=== PATIENT | male | born 1965 | race Caucasian/White ===

== ENCOUNTER 2017-02-03 21:00 | Inpatient (IN) | payer MEDICAID ==
[~2017-02-03] VITALS: Ht 167.6 cm; Wt 70.3 kg
[2017-02-03] MEDS ORDERED: ONDANSETRON HCL 4MG/2ML VIAL IV STA (23:19)
[2017-02-03] MEDS ORDERED: MORPHINE SULFATE 4 MG/ML CPJ (NOT FOR IM USE) IV STA (23:19)
[2017-02-04 00:22] LABS: BASOPHILS % 1.1 % (0.0-2.0); EOSINOPHILS % 10.1 % (0.0-5.0); HEMOGLOBIN. 8.8 g/dL (14.0-18.0); LYMPHOCYTES % 33.3 % (20.0-50.0); MEAN CORPUSCULAR HEMOGLOBIN 28.4 pg (28.0-32.0); MEAN CORPUSCULAR VOLUME 84.2 fL (80.0-94.0); MEAN PLATELET VOLUME 7.8 fl (7.4-10.4); MONOCYTES % 9.7 % (2.0-8.0); NEUTROPHILS % 45.8 % (40.0-76.0); PLATELET 380 x1000/uL (130-400); RED BLOOD CELL COUNT 3.09 mill/uL (4.7-6.1); RED CELL DISTRIBUTION WIDTH 14.2 % (11.6-14.6)
[2017-02-04 00:27] LABS: BG BASE EXCESS 3.6 mmol/L (-2.0-2.0); BG CARBOXYHEMOGLOBIN 2.2 % (0.5-1.5); BG DEOXYHEMOGLOBIN 5.2 % (0.0-5.0); BG FRACTION INSPIRED OXYGEN 21; BG HCO3 ACT 27.6 mmol/L (22.0-26.0); BG METHEMOGLOBIN 0.1 % (0.0-1.5); BG OXYGEN SATURATION 94.7 % (92.0-98.5); BG OXYHEMOGLOBIN 92.5 % (94.0-97.0); BG PCO2 39.3 mmHg (35.0-45.0); BG PH 7.464 (7.350-7.450); BG SAMPLE SITE RIGHT BRACHIAL; BG TOTAL HEMOGLOBIN 10.4 g/dL (12.0-18.0); BG VENT MODE ROOM AIR
[2017-02-04 00:38] LABS: CARBON DIOXIDE 30 mEq/L (21-32); CHLORIDE 93 mEq/L (98-107); TROPONIN I < 0.02 ng/mL (0.00-0.04)
[2017-02-04] MEDS ORDERED: SODIUM CHLORIDE 0.9% 1,000 ML IV SCH (01:38)
[2017-02-04] MEDS ORDERED: INSULIN REGULAR (HUMULIN R) 300UNITS/3ML SUBCUT ONE (01:45)
[2017-02-04] MEDS ORDERED: VANCOMYCIN 1 G PREMIX 200 ML IV ONE (01:45)
[2017-02-04] MEDS ORDERED: MEROPENEM 1,000 MG in SODIUM CHLORIDE 0.9% 100 ML IV ONE (01:45)
[2017-02-04 13:00] VITALS: BP 120/68
[2017-02-04 13:07] VITALS: BP 120/68
[2017-02-04] MEDS ORDERED: QUET300T2 PO (13:18)
[2017-02-04] MEDS ORDERED: GABA-290 PO (13:18)
[2017-02-04] MEDS ORDERED: LANTUSUD SUBCUT (13:18)
[2017-02-04] MEDS ORDERED: TRAM50TA3 PO (13:18)
[2017-02-04] MEDS ORDERED: INSLIS SUBCUT (13:18)
[2017-02-04] MEDS ORDERED: BACL-141 PO (13:18)
[2017-02-04] MEDS ORDERED: ASPI-1159 PO (13:18)
[2017-02-04] MEDS ORDERED: CLONIDINE 0.1MG TABLET PO PRN (14:00)
[2017-02-04] MEDS ORDERED: ACETAMINOPHEN 325MG TABLET PO PRN (14:00)
[2017-02-04] MEDS ORDERED: ONDANSETRON HCL 4MG/2ML VIAL IV PRN (14:00)
[2017-02-04] MEDS ORDERED: DEXTROSE 50% WATER 50ML SYRINGE IV PRN (14:00)
[2017-02-04] MEDS ORDERED: IPRATROPIUM/ALBUTEROL 0.5-3(2.5)MG/3ML NEB INH PRN (14:00)
[2017-02-04] MEDS: ASPIRIN 81MG EC TABLET PO SCH (14:18)
[2017-02-04] MEDS: AMLODIPINE 10MG TABLET PO SCH (14:19)
[2017-02-04] MEDS: HYDROCODONE/ACETAMINOPHEN 5/325MG TABLET PO PRN ×2 (14:19→20:56)
[2017-02-04] MEDS: ENOXAPARIN 40MG/0.4ML SYR SUBCUT SCH (14:23)
[2017-02-04 16:00] VITALS: BP 115/70
[2017-02-04] MEDS ORDERED: LEVOFLOXACIN 500MG PREMIX 100 ML IV SCH (16:00)
[2017-02-04] MEDS: BLOOD SUGAR DIAGNOSTIC STRIP TEST SCH ×2 (17:15→20:56)
[2017-02-04] MEDS: INSULIN LISPRO 100 UNITS/ML SUBCUT SCH ×2 (18:30→21:01)
[2017-02-04 20:00] VITALS: BP 118/78
[2017-02-04 20:01] LABS: CREATINE KINASE 18 IU/L (39-308); CREATINE KINASE MB FRACTION < 0.5 ng/mL (0.5-3.6); TROPONIN I < 0.02 ng/mL (0.00-0.04)
[2017-02-05] VITALS: BP 99/79
[2017-02-05 04:04] LABS: CREATINE KINASE 12 IU/L (39-308); CREATINE KINASE MB FRACTION < 0.5 ng/mL (0.5-3.6); TROPONIN I < 0.02 ng/mL (0.00-0.04)
[2017-02-05] MEDS: BLOOD SUGAR DIAGNOSTIC STRIP TEST SCH ×2 (06:33→12:38)
[2017-02-05] MEDS: INSULIN LISPRO 100 UNITS/ML SUBCUT SCH ×2 (06:42→13:01)
[2017-02-05] MEDS: HYDROCODONE/ACETAMINOPHEN 5/325MG TABLET PO PRN (06:46)
[2017-02-05 08:00] VITALS: BP 105/58
[2017-02-05] MEDS: AMLODIPINE 10MG TABLET PO SCH (09:00)
[2017-02-05 09:08] LABS: BASOPHILS % 1.2 % (0.0-2.0); EOSINOPHILS % 10.3 % (0.0-5.0); HEMOGLOBIN. 9.2 g/dL (14.0-18.0); LYMPHOCYTES % 43.2 % (20.0-50.0); MEAN CORPUSCULAR HEMOGLOBIN 28.3 pg (28.0-32.0); MEAN CORPUSCULAR VOLUME 82.9 fL (80.0-94.0); MEAN PLATELET VOLUME 7.7 fl (7.4-10.4); MONOCYTES % 8.8 % (2.0-8.0); NEUTROPHILS % 36.5 % (40.0-76.0); PLATELET 412 x1000/uL (130-400); RED BLOOD CELL COUNT 3.25 mill/uL (4.7-6.1); RED CELL DISTRIBUTION WIDTH 14.5 % (11.6-14.6)
[2017-02-05] MEDS: ASPIRIN 81MG EC TABLET PO SCH (09:38)
[2017-02-05] MEDS: ENOXAPARIN 40MG/0.4ML SYR SUBCUT SCH (09:39)
[2017-02-05 09:42] LABS: CARBON DIOXIDE 29 mEq/L (21-32); CHLORIDE 97 mEq/L (98-107); HDL CHOLESTEROL 17 mg/dL (40-59); LDL CHOLESTEROL 78 mg/dL (5-100)
[2017-02-05 14:34] VITALS: BP 20/107
== END 2017-02-05 15:00 | disposition home or self-care (01) | DRG 203 ==
LOC: ER 21:33 → 8WST 02-04 01:42 → EDBEDREQ 02-04 01:51 → EDBEDREQTM 02-04 01:51 → ENRESERV 02-04 11:25
PROVIDERS: ADMIT Hospitalist; ATTEND Hospitalist
DX: M94.0 Chondrocostal junction syndrome [Tietze] (principal); E43 Unspecified severe protein-calorie malnutrition; J18.9 Pneumonia, unspecified organism; K75.9 Inflammatory liver disease, unspecified; E87.8 Other disorders of electrolyte and fluid balance, not elsewhere classified; I10 Essential (primary) hypertension; E11.9 Type 2 diabetes mellitus without complications; F17.200 Nicotine dependence, unspecified, uncomplicated; F12.90 Cannabis use, unspecified, uncomplicated; E78.00 Pure hypercholesterolemia, unspecified; Z87.01 Personal history of pneumonia (recurrent); E87.1 Hypo-osmolality and hyponatremia; E83.51 Hypocalcemia
CPT/HCPCS: 36415; 36600; 71010; 80053; 80061; 82010; 82375; 82550; 82553; 82805; 82962; 83605; 83880; 84484; 85025; 87040; 93005; 93970; 96365; 96366; 96368; 96372; 96375; 99291; J1650; J1815; J1956; J2185; J2270; J2405; J3370; J7030; J7040; J7050

== ENCOUNTER 2019-04-04 19:12 | Emergency (ER) | payer MEDICAID ==
[~2019-04-04] VITALS: Ht 167.6 cm; Wt 82.0 kg
[~2019-04-04 19:12] MED LIST: ASPI-1393 PO; BACL-141 PO; GABA-290 PO; INSLIS SUBCUT; LANTUSUD SUBCUT; QUET300T2 PO; TRAM50TA3 PO
[2019-04-04] MEDS ORDERED: SODIUM CHLORIDE 0.9% 1,000 ML IV ONE (20:04)
[2019-04-04 20:27] LABS: CHLORIDE 100 mEq/L (98-107)
[2019-04-04 20:32] LABS: ETHANOL BLOOD < 10 mg/dL
[2019-04-04 20:33] LABS: BASOPHILS % 1.2 % (0.0-2.0); EOSINOPHILS % 8.3 % (0.0-5.0); HEMATOCRIT. 40.5 % (42.0-52.0); HEMOGLOBIN. 14.1 g/dL (14.0-18.0); LYMPHOCYTES % 28.9 % (20.0-50.0); MEAN CORPUSCULAR HEMOGLOBIN 30.7 pg (28.0-32.0); MEAN CORPUSCULAR VOLUME 88.5 fL (80.0-94.0); MEAN PLATELET VOLUME 9.1 fl (7.4-10.4); MONOCYTES % 10.6 % (2.0-8.0); PLATELET 215 x1000/uL (130-400); RED BLOOD CELL COUNT 4.58 mill/uL (4.7-6.1); RED CELL DISTRIBUTION WIDTH 13.5 % (11.6-14.6)
[2019-04-04 21:24] LABS: CLARITY URINE CLEAR (CLEAR); COLOR URINE YELLOW (YELLOW); KETONES URINE NEGATIVE (NEGATIVE); LEUKOCYTE ESTERASE URINE NEGATIVE (NEGATIVE); NITRITE URINE NEGATIVE (NEGATIVE); OCCULT BLOOD URINE NEGATIVE (NEGATIVE); PH URINE 6.5 (4.5-8.0); PROTEIN URINE NEGATIVE (NEGATIVE); SPECIFIC GRAVITY URINE 1.025 (1.005-1.030); UROBILINOGEN URINE 0.2 E.U./dL (0.2-1.0)
[2019-04-04] MEDS ORDERED: METFORMIN HCL 500MG TABLET PO ONE (21:30)
[2019-04-04] MEDS ORDERED: INSULIN GLARGINE UD 100 UNITS/ML SYR SUBCUT NR (21:30)
[2019-04-04] MEDS ORDERED: BENAZEPRIL 5MG TABLET PO ONE (21:30)
[2019-04-04 21:34] LABS: *AMPHETAMINES SCREEN URINE NEGATIVE (NEGATIVE); *BARBITURATES SCREEN URINE NEGATIVE (NEGATIVE); *BENZODIAZEPINES SCREEN URINE NEGATIVE (NEGATIVE); *COCAINE SCREEN URINE NEGATIVE (NEGATIVE); CANNABINOID URINE SCREEN NEGATIVE (NEGATIVE); OPIATES URINE SCREEN NEGATIVE (NEGATIVE); PHENCYCLIDINE URINE SCREEN NEGATIVE (NEGATIVE)
[2019-04-04 21:35] LABS: METHADONE URINE SCREEN NEGATIVE (NEGATIVE)
[2019-04-04] MEDS: GABAPENTIN 300MG CAPSULE PO SCH (23:57)
[2019-04-05] MEDS: GABAPENTIN 300MG CAPSULE PO SCH (06:50)
[2019-04-05] MEDS ORDERED: INSULIN REGULAR (HUMULIN R) 300UNITS/3ML SUBCUT ONE (12:30)
[2019-04-05 13:00] VITALS: BP 146/76
== END 2019-04-05 13:45 | disposition home or self-care (01) ==
LOC: ER 19:12
DX: F32.9 Major depressive disorder, single episode, unspecified (principal); F41.9 Anxiety disorder, unspecified; R45.851 Suicidal ideations; E11.65 Type 2 diabetes mellitus with hyperglycemia; I10 Essential (primary) hypertension; E78.00 Pure hypercholesterolemia, unspecified; F43.10 Post-traumatic stress disorder, unspecified; F17.210 Nicotine dependence, cigarettes, uncomplicated; Z71.6 Tobacco abuse counseling; Z79.82 Long term (current) use of aspirin; Z75.1 Person awaiting admission to adequate facility elsewhere; Z79.4 Long term (current) use of insulin
CPT/HCPCS: 36415; 80053; 80305; 80320; 81003; 82962; 85025; 96372; 99284; 99406; J1815; J7030; G0480

== ENCOUNTER 2019-06-24 18:33 | Emergency (ER) | payer MEDICAID ==
[~2019-06-24] VITALS: Ht 167.6 cm; Wt 80.0 kg
[~2019-06-24 18:33] MED LIST changes: -ASPI-1393 PO; +ASPI-1497 PO
[2019-06-24] MEDS ORDERED: LORAZEPAM 1MG TABLET PO ONE (21:00)
[2019-06-24 21:47] LABS: BASOPHILS % 1.1 % (0.0-2.0); EOSINOPHILS % 1.8 % (0.0-5.0); HEMATOCRIT. 47.6 % (42.0-52.0); HEMOGLOBIN. 16.4 g/dL (14.0-18.0); LYMPHOCYTES % 22.3 % (20.0-50.0); MEAN CORPUSCULAR HEMOGLOBIN 30.9 pg (28.0-32.0); MEAN CORPUSCULAR VOLUME 89.4 fL (80.0-94.0); MEAN PLATELET VOLUME 9.8 fl (7.4-10.4); MONOCYTES % 6.2 % (2.0-8.0); NEUTROPHILS % 68.6 % (40.0-76.0); PLATELET 340 x1000/uL (130-400); RED BLOOD CELL COUNT 5.33 mill/uL (4.7-6.1); RED CELL DISTRIBUTION WIDTH 13.8 % (11.6-14.6)
[2019-06-24 21:49] LABS: CHLORIDE 95 mEq/L (98-107)
[2019-06-24 21:54] LABS: ETHANOL BLOOD < 10 mg/dL
[2019-06-24] MEDS ORDERED: SODIUM CHLORIDE 0.9% 1,000 ML IV ONE (22:03)
[2019-06-24 22:46] LABS: CLARITY URINE CLEAR (CLEAR); COLOR URINE YELLOW (YELLOW); KETONES URINE NEGATIVE (NEGATIVE); LEUKOCYTE ESTERASE URINE NEGATIVE (NEGATIVE); NITRITE URINE NEGATIVE (NEGATIVE); OCCULT BLOOD URINE NEGATIVE (NEGATIVE); PH URINE 6.5 (4.5-8.0); PROTEIN URINE NEGATIVE (NEGATIVE); SPECIFIC GRAVITY URINE 1.037 (1.005-1.030); UROBILINOGEN URINE 0.2 E.U./dL (0.2-1.0)
[2019-06-24 22:57] LABS: *AMPHETAMINES SCREEN URINE NEGATIVE (NEGATIVE); *BARBITURATES SCREEN URINE NEGATIVE (NEGATIVE); *BENZODIAZEPINES SCREEN URINE NEGATIVE (NEGATIVE); *COCAINE SCREEN URINE NEGATIVE (NEGATIVE); METHADONE URINE SCREEN NEGATIVE (NEGATIVE); OPIATES URINE SCREEN NEGATIVE (NEGATIVE)
[2019-06-24 22:58] LABS: CANNABINOID URINE SCREEN PRESUMTIVE POSITIVE (NEGATIVE); PHENCYCLIDINE URINE SCREEN PRESUMTIVE POSITIVE (NEGATIVE)
[2019-06-25] MEDS ORDERED: INSULIN REGULAR (HUMULIN R) 300UNITS/3ML SUBCUT ONE ×2 (00:15→13:30)
[2019-06-25] MEDS ORDERED: INSULIN REGULAR (HUMULIN R) 300UNITS/3ML IV ONE (00:15)
[2019-06-25 15:24] VITALS: BP 131/78
== END 2019-06-25 15:28 | disposition home or self-care (01) ==
LOC: ER 18:33
DX: R53.1 Weakness (principal); E86.0 Dehydration; F16.10 Hallucinogen abuse, uncomplicated; R45.851 Suicidal ideations; E11.65 Type 2 diabetes mellitus with hyperglycemia; Z79.4 Long term (current) use of insulin; Z79.84 Long term (current) use of oral hypoglycemic drugs
CPT/HCPCS: 36415; 80053; 80305; 80307; 80320; 80329; 81003; 82010; 82962; 84443; 85025; 93005; 96361; 99285; J1815; J7030; G0480